=== PATIENT | male | born 1990 | race Caucasian/White ===

== ENCOUNTER 2017-10-08 19:58 | Emergency (ER) | payer OTHER ==
[2017-10-08] MEDS: NORCO, ANEXSIA 5/325MG TABLET (HYDROcodone/ACETAMINOPHEN) PO (22:11)
== END 2017-10-08 22:15 | disposition home or self-care (01) ==
LOC: M ED 19:58
DX: S01.81XA Laceration without foreign body of other part of head, initial encounter (principal); W01.118A Fall on same level from slipping, tripping and stumbling with subsequent striking against other sharp object, initial encounter; Y92.830 Public park as the place of occurrence of the external cause
CPT/HCPCS: 70486